=== PATIENT | female | born 1935 | race Caucasian/White ===

== ENCOUNTER 2025-02-09 05:59 | Day surgery (SDC) | payer MEDICARE | END 2025-02-09 23:00 | disposition home or self-care (01) | LOC: WOUND 05:59 | DX: L89.153 Pressure ulcer of sacral region, stage 3 (principal); E11.622 Type 2 diabetes mellitus with other skin ulcer; E11.22 Type 2 diabetes mellitus with diabetic chronic kidney disease; N18.30 Chronic kidney disease, stage 3 unspecified; Z87.891 Personal history of nicotine dependence; Z88.0 Allergy status to penicillin | CPT/HCPCS: A6213; G0463 ==

== ENCOUNTER 2025-02-16 04:12 | Day surgery (SDC) | payer MEDICARE | END 2025-02-16 23:26 | disposition home or self-care (01) | LOC: WOUND 04:12 | DX: L89.153 Pressure ulcer of sacral region, stage 3 (principal); E11.622 Type 2 diabetes mellitus with other skin ulcer; I10 Essential (primary) hypertension | CPT/HCPCS: A6213; G0463 ==

== ENCOUNTER 2025-02-23 01:50 | Day surgery (SDC) | payer MEDICARE | END 2025-02-23 23:31 | disposition home or self-care (01) | LOC: WOUND 01:50 | DX: L89.153 Pressure ulcer of sacral region, stage 3 (principal); I10 Essential (primary) hypertension; E11.9 Type 2 diabetes mellitus without complications | CPT/HCPCS: A6213; G0463 ==

== ENCOUNTER 2025-03-16 03:26 | Day surgery (SDC) | payer MEDICARE | END 2025-03-16 23:59 | disposition home or self-care (01) | LOC: WOUND 03:26 | DX: L89.153 Pressure ulcer of sacral region, stage 3 (principal); E11.622 Type 2 diabetes mellitus with other skin ulcer | CPT/HCPCS: A6213; G0463 ==

== ENCOUNTER 2025-04-06 08:00 | Day surgery (SDC) | payer MEDICARE | END 2025-04-06 23:00 | disposition home or self-care (01) | LOC: WOUND 08:00 | DX: L89.153 Pressure ulcer of sacral region, stage 3 (principal); E11.622 Type 2 diabetes mellitus with other skin ulcer; I10 Essential (primary) hypertension | CPT/HCPCS: A6213; G0463 ==

== ENCOUNTER 2025-04-27 01:03 | Day surgery (SDC) | payer MEDICARE | END 2025-04-27 23:00 | disposition home or self-care (01) | LOC: WOUND 01:03 | DX: L89.153 Pressure ulcer of sacral region, stage 3 (principal); E11.622 Type 2 diabetes mellitus with other skin ulcer | CPT/HCPCS: A6213; G0463 ==

== ENCOUNTER 2025-05-04 00:43 | Day surgery (SDC) | payer MEDICARE | END 2025-05-04 23:00 | disposition home or self-care (01) | LOC: WOUND 00:43 | DX: L89.153 Pressure ulcer of sacral region, stage 3 (principal); E11.622 Type 2 diabetes mellitus with other skin ulcer | CPT/HCPCS: A6196; A6213; G0463 ==

== ENCOUNTER 2025-05-11 00:56 | Day surgery (SDC) | payer MEDICARE ==
[2025-05-11] MEDS ORDERED: Lidocaine HCl 4% Cream 5 GM ONE (12:46)
== END 2025-05-11 23:00 | disposition home or self-care (01) ==
LOC: WOUND 00:56
DX: L89.153 Pressure ulcer of sacral region, stage 3 (principal); E11.9 Type 2 diabetes mellitus without complications; I10 Essential (primary) hypertension
CPT/HCPCS: A6196; A6213; A9270; G0463

== ENCOUNTER 2025-05-18 00:41 | Day surgery (SDC) | payer MEDICARE ==
[2025-05-18] MEDS ORDERED: Lidocaine HCl 4% Cream 5 GM ONE (12:36)
== END 2025-05-18 23:00 | disposition home or self-care (01) ==
LOC: WOUND 00:41
DX: L89.153 Pressure ulcer of sacral region, stage 3 (principal); E11.9 Type 2 diabetes mellitus without complications; I10 Essential (primary) hypertension
CPT/HCPCS: A6213; A9270; G0463

== ENCOUNTER 2025-06-01 00:31 | Day surgery (SDC) | payer MEDICARE | END 2025-06-01 23:35 | disposition home or self-care (01) | LOC: WOUND 00:31 | DX: L89.153 Pressure ulcer of sacral region, stage 3 (principal); E11.9 Type 2 diabetes mellitus without complications; I10 Essential (primary) hypertension | CPT/HCPCS: A6213; G0463 ==

== ENCOUNTER 2025-06-15 01:21 | Day surgery (SDC) | payer MEDICARE | END 2025-06-15 23:00 | disposition home or self-care (01) | LOC: WOUND 01:21 | DX: L89.153 Pressure ulcer of sacral region, stage 3 (principal); E11.9 Type 2 diabetes mellitus without complications; I10 Essential (primary) hypertension | CPT/HCPCS: A6213; G0463 ==

== ENCOUNTER 2025-06-22 02:40 | Day surgery (SDC) | payer MEDICARE ==
[2025-06-22] MEDS ORDERED: Lidocaine HCl 4% Cream 5 GM ONE (12:22)
[2025-06-22] MEDS ORDERED: Miconazole Nitrate 2% 85 GM PWD ONE (12:46)
== END 2025-06-22 23:00 | disposition home or self-care (01) ==
LOC: WOUND 02:40
DX: L89.153 Pressure ulcer of sacral region, stage 3 (principal); E11.9 Type 2 diabetes mellitus without complications; I10 Essential (primary) hypertension
CPT/HCPCS: A6213; A9270; G0463

== ENCOUNTER 2025-06-29 01:21 | Day surgery (SDC) | payer MEDICARE | END 2025-06-29 22:00 | disposition home or self-care (01) | LOC: WOUND 01:21 | DX: L89.153 Pressure ulcer of sacral region, stage 3 (principal); E11.9 Type 2 diabetes mellitus without complications; I10 Essential (primary) hypertension | CPT/HCPCS: A6213; G0463 ==

== ENCOUNTER 2025-07-06 01:24 | Day surgery (SDC) | payer MEDICARE ==
[2025-07-06] MEDS ORDERED: Miconazole Nitrate 2% 85 GM PWD ONE (13:02)
== END 2025-07-06 23:00 | disposition home or self-care (01) ==
LOC: WOUND 01:24
DX: L89.153 Pressure ulcer of sacral region, stage 3 (principal); E11.9 Type 2 diabetes mellitus without complications; I10 Essential (primary) hypertension
CPT/HCPCS: A6213; A9270; G0463

== ENCOUNTER 2025-07-27 04:20 | Day surgery (SDC) | payer MEDICARE ==
[2025-07-27] MEDS ORDERED: Miconazole Nitrate 2% 85 GM PWD ONE (12:35)
== END 2025-07-27 23:26 | disposition home or self-care (01) ==
LOC: WOUND 04:20
DX: L89.153 Pressure ulcer of sacral region, stage 3 (principal); I10 Essential (primary) hypertension; E11.9 Type 2 diabetes mellitus without complications
CPT/HCPCS: A6213; A9270; G0463

== ENCOUNTER 2025-08-10 00:39 | Day surgery (SDC) | payer MEDICARE ==
[2025-08-10] MEDS ORDERED: Miconazole Nitrate 2% 85 GM PWD ONE (12:32)
[2025-08-10] MEDS ORDERED: Lidocaine HCl 4% Cream 5 GM ONE (12:32)
== END 2025-08-10 23:00 | disposition home or self-care (01) ==
LOC: WOUND 00:39
DX: L89.153 Pressure ulcer of sacral region, stage 3 (principal); E11.9 Type 2 diabetes mellitus without complications; I10 Essential (primary) hypertension
CPT/HCPCS: A6196; A6213; A9270

== ENCOUNTER 2025-08-17 00:26 | Day surgery (SDC) | payer MEDICARE | END 2025-08-17 23:26 | disposition home or self-care (01) | LOC: WOUND 00:26 | DX: L89.153 Pressure ulcer of sacral region, stage 3 (principal); E11.9 Type 2 diabetes mellitus without complications; I10 Essential (primary) hypertension | CPT/HCPCS: A6196; A6213; G0463 ==

== ENCOUNTER 2025-08-24 00:57 | Day surgery (SDC) | payer MEDICARE | END 2025-08-24 22:00 | disposition home or self-care (01) | LOC: WOUND 00:57 | DX: L89.153 Pressure ulcer of sacral region, stage 3 (principal); E11.9 Type 2 diabetes mellitus without complications; I10 Essential (primary) hypertension ==

== ENCOUNTER 2025-09-07 07:23 | Day surgery (SDC) | payer MEDICARE ==
[2025-09-07] MEDS ORDERED: Lidocaine HCl 4% Cream 5 GM ONE (12:34)
[2025-09-07] MEDS ORDERED: Miconazole Nitrate 2% 85 GM PWD ONE (12:49)
== END 2025-09-08 23:38 | disposition home or self-care (01) ==
LOC: WOUND 07:23
DX: L89.153 Pressure ulcer of sacral region, stage 3 (principal); E11.622 Type 2 diabetes mellitus with other skin ulcer
CPT/HCPCS: A6196; A6213; A9270; G0463

== ENCOUNTER 2025-09-14 02:41 | Day surgery (SDC) | payer MEDICARE | END 2025-09-14 23:00 | disposition home or self-care (01) | LOC: WOUND 02:41 | DX: L89.153 Pressure ulcer of sacral region, stage 3 (principal); E11.9 Type 2 diabetes mellitus without complications; I10 Essential (primary) hypertension | CPT/HCPCS: A6213; G0463 ==

== ENCOUNTER 2025-09-21 00:20 | Day surgery (SDC) | payer MEDICARE ==
[2025-09-21] MEDS ORDERED: Lidocaine HCl 4% Cream 5 GM ONE (12:32)
== END 2025-09-21 23:00 | disposition home or self-care (01) ==
LOC: WOUND 00:20
DX: L89.153 Pressure ulcer of sacral region, stage 3 (principal); E11.9 Type 2 diabetes mellitus without complications; I10 Essential (primary) hypertension
CPT/HCPCS: A6213; A9270

== ENCOUNTER → 2025-10-05 | Day surgery (SDC) | payer MEDICARE | LOC: WOUND 11:31 | DX: L89.153 Pressure ulcer of sacral region, stage 3 (principal); E11.9 Type 2 diabetes mellitus without complications; I10 Essential (primary) hypertension | CPT/HCPCS: A6196; A6213; G0463 ==